=== PATIENT | male | born 2000 | race African-American/Black ===

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

== ENCOUNTER 2023-12-08 17:14 | Inpatient (IN) | payer MEDICAID ==
[2023-12-08 18:52] LABS: Amphetamine Screen,Urine Not Detected (NotDetected); Barbiturate Screen,Urine Not Detected (NotDetected); Benzodiazepines Screen,Urine Not Detected (NotDetected); Cocaine Screen,Urine Not Detected (NotDetected); Methadone Screen, Urine Not Detected (NotDetected); Opiate Screen,Urine Not Detected (NotDetected); Oxycodone Screen, Urine Not Detected (NotDetected); Phencyclidine Screen,Urine Not Detected (NotDetected); Tricyclic Antidepressant,Urine Not Detected (NotDetected); Urn Cannabinoid Scrn Detected (NotDetected)
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
[2023-12-08] MEDS: HALOPERIDOL LACTATE 5 MG/ML 1 ML VIAL IM PRN (19:21)
[2023-12-08] MEDS: LORazepam 2 MG/ML INJ IM PRN (19:22)
[2023-12-09] MEDS: LORazepam 2 MG/ML INJ IM STA (06:10)
[2023-12-09] MEDS: HALOPERIDOL LACTATE 5 MG/ML 1 ML VIAL IM STA (06:11)
[2023-12-09] MEDS ORDERED: haloperidoL 5 MG TAB PO PRN (17:33)
[2023-12-09] MEDS ORDERED: HALOPERIDOL LACTATE 5 MG/ML 1 ML VIAL IM PRN (17:33)
[2023-12-09] MEDS ORDERED: LORazepam 2 MG/ML INJ IM PRN (17:34)
[2023-12-09] MEDS ORDERED: LORazepam 1 MG TAB PO PRN (17:34)
[2023-12-09] MEDS ORDERED: ACETAMINOPHEN TAB 325 MG TAB PO PRN (18:16)
[2023-12-09] MEDS ORDERED: MAGNESIUM HYDROXIDE 2,400 MG/30 ML CUP PO PRN (18:16)
[2023-12-09] MEDS ORDERED: IBUPROFEN 600 MG TAB PO PRN (18:16)
[2023-12-09] MEDS ORDERED: MAG HYDROX/AL HYDROX/SIMETH 355 ML BOTTLE PO PRN (18:16)
[2023-12-09] MEDS: NICOTINE 14MG/24HR PATCH TRANSDERM SCH (19:07)
--- NOTE | 2023-12-10 03:43 | P.MDCNMH ---
History of Present Illness H&P Date: 12/10/23 Chief Complaint: Medical eval 23-year-old male coming into the hospital petition by police for psych evaluation was initially found to have pressured speech and delusional ideation in the ED during my evaluation patient has pressured speech making comments regarding other people confucianist family with paranoid content Denies any medical concerns at this time denies any fevers chills coughing chest pain trouble breathing abdominal pain rash Admits to smoking marijuana denies any tobacco smoking or alcohol review of systems Pertinent positives as noted in HPI. All other systems were reviewed and are negative on exam Constitutional: No acute distress, cooperative Eyes: Anicteric sclerae, moist conjunctiva, Pupils equal round reactive to light Lungs: Clear to auscultation Clear to percussion Normal respiratory effort, no accessory muscle use Cardiovascular: Heart regular in rate and rhythm, No murmurs, gallops, or rubs No peripheral edema Abdominal: Soft Nontender, no guarding, rebound or rigidity Abdomen moving with respiration Normoactive bowel sounds Extremities: No digital cyanosis No clubbing Pedal pulses intact and symmetrical Radial pulses intact and symmetrical No calf tenderness Psychiatric: Alert and oriented to person, place and time Neuro Muscles Strength 5/5 in all 4 extremities Sensation to light touch grossly present throughout Cranial nerves II-XII grossly intact Past Medical History Past Medical History: No Reported History History of Any Multi-Drug Resistant Organisms: None Reported Past Surgical History: No Surgical Hx Reported Past Anesthesia/Blood Transfusion Reactions: No Reported Reaction Past Psychological History: No Psychological Hx Reported Smoking Status: Vaper Past Alcohol Use History: None Reported, Occasional Past Drug Use History: None Reported, Marijuana - Past Family History Mother History Unknown: Yes Medications and Allergies Home Medications Medication Instructions Recorded Confirmed Type No Known Home Medications 03/30/18 12/09/23 History Allergies Allergy/AdvReac Type Severity Reaction Status Date / Time No Known Allergies Allergy Verified 12/09/23 19:51 Physical Exam Vitals: Vital Signs Temp Pulse Pulse Resp BP BP Pulse Ox 12/09/23 17:37 97.7 F 68 16 118/58 98 12/09/23 11:00 97.9 F 71 16 113/74 100 Intake and Output 12/09/23 12/09/23 12/10/23 14:59 22:59 06:59 Other: Weight 42.728 kg Cranial Nerve Examination - Cranial Nerves Cranial Nerve II- Optic: Intact Cranial Nerve III- Oculomotor: Intact Cranial Nerve IV- Trochlear: Intact Cranial Nerve V- Trigeminal: Intact Cranial Nerve - Abducens: Intact Cranial Nerve VII- Facial: Intact Cranial Nerve VIII- Auditory: Intact Cranial Nerve IX- Glossopharyngeal: Intact Cranial Nerve X- Vagus: Intact Cranial Nerve XI- Accessory: Intact Cranial Nerve XII- Hypoglossal: Intact Assessment and Plan Assessment: Acute psychosis Management per psych Stable from medical standpoint No labs available for review at this time except for negative acute respiratory viral panel COVID RSV and influenza Urine drug screen positive for marijuana Follow-up labs Thank you for this consultation
[2023-12-10 09:48] LABS: Basophils # (A) 0.1 k/uL (0-0.2); Basophils % (A) 2 %; Eosinophils % (A) 1 %; HGB 16.5 gm/dL (13.0-17.5); Lymphocytes # (A) 0.6 k/uL (1.0-4.8); Lymphocytes % (A) 22 %; MCH 30.7 pg (25.0-35.0); MCV 93.2 fL (80.0-100.0); Mean Platelet Volume 7.9; Monocytes # (A) 0.2 k/uL (0-1.0); Monocytes % (A) 8 %; Neutrophils # (A) 1.8 k/uL (1.3-7.7); Neutrophils % (A) 66 %; Platelet Count 253 k/uL (150-450); RBC 5.37 m/uL (4.30-5.90); RDW 12.5 % (11.5-15.5); WBC 2.7 k/uL (3.8-10.6)
[2023-12-10 10:38] LABS: ALT 56 U/L (4-49); AST 106 U/L (17-59); African American GFR (CKD) >90 (>60 ml/min/1.73 sqM); Albumin 4.8 g/dL (3.5-5.0); Alkaline Phosphatase 60 U/L (38-126); Anion Gap 6 mmol/L; Blood Urea Nitrogen 12 mg/dL (9-20); Calcium 9.4 mg/dL (8.4-10.2); Carbon Dioxide 30 mmol/L (22-30); Chloride 100 mmol/L (98-107); Glucose 98 mg/dL (74-99); Non-African American GFR(CKD) >90 (>60 ml/min/1.73 sqM); Potassium 3.8 mmol/L (3.5-5.1); Sodium 136 mmol/L (137-145); Total Bilirubin 1.2 mg/dL (0.2-1.3); Total Protein 7.7 g/dL (6.3-8.2)
--- NOTE | 2023-12-10 12:47 | P.HP ---
Psychiatric H&P - . H&P Date: 12/10/23 History & Physical: Allergies Allergy/AdvReac Type Severity Reaction Status Date / Time No Known Allergies Allergy Verified 12/09/23 19:51 Vital Signs Temp 97.7 F 12/10/23 06:25 Pulse 86 12/10/23 06:25 Resp 16 12/10/23 06:25 BP 125/72 12/10/23 06:25 Pulse Ox 98 12/09/23 17:37 FiO2 Intake & Output 12/09/23 12/10/23 12/10/23 18:59 06:59 18:59 Weight 42.728 kg Laboratory Last Values Urine Opiates Screen Not Detected (NotDetected) 12/08/23 17:42 Ur Oxycodone Screen Not Detected (NotDetected) 12/08/23 17:42 Urine Methadone Screen Not Detected (NotDetected) 12/08/23 17:42 Ur Barbiturates Screen Not Detected (NotDetected) 12/08/23 17:42 U Tricyclic Antidepress Not Detected (NotDetected) 12/08/23 17:42 Ur Phencyclidine Scrn Not Detected (NotDetected) 12/08/23 17:42 Ur Amphetamines Screen Not Detected (NotDetected) 12/08/23 17:42 U Methamphetamines Scrn Not Detected (NotDetected) 12/08/23 17:42 U Benzodiazepines Scrn Not Detected (NotDetected) 12/08/23 17:42 Urine Cocaine Screen Not Detected (NotDetected) 12/08/23 17:42 U Marijuana (THC) Screen Detected (NotDetected) H 12/08/23 17:42 Influenza Type A (PCR) Not Detected (Not Detectd) 12/09/23 06:30 Influenza Type B (PCR) Not Detected (Not Detectd) 12/09/23 06:30 RSV (PCR) Not Detected (Not Detectd) 12/09/23 06:30 SARS-CoV-2 (PCR) Not Detected (Not Detectd) 12/09/23 06:30 12/10/23 08:55 IDENTIFYING DATA: Patient is a 23 year old male. 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 No children. HPI: Patient presented to the hospital on 12/07, on a case picker order. As per EPS note, "Tensioning Machine Operator attempted to complete assessment, but pt refused to speak to comic book writer. pt pretended to be asleep and rolled over and pulled up blanket to cover his head when shaken. pt was brought in on pickup order completed by his mother. Per pickup order, pt has been talking to his mother "about checks that are his that are cancelled in someone else's name. He told me that he wants to take pain away that everyone has so they can live because he wants to ." pt has been apparently carrying a steak knife around to protect himself, is awake for days at a time, and behaving irrationally. Upon arrival to ER, pt was acutely psychotic per ER staff. pt was loud, demanding, attempting to run up and down hallways, and was religiously preoccupied. pt also presented with symptoms of paranoia as he reported that he believes that he was being poisoned at home". He states that he came to the ED earlier in the day, and he was discharged, and came back because he felt there was something in his system. He stated that his speech was rapid, and it is not him. He states that he was not himself. He gets wide eyed, and states that he hears "you need god in your life, and get the devil out" He thinks that he was drugged by touching something of his fathers, he guesses it was fentanyl. Patient is minimizing his actions, and being very vague and evasive regarding the circumstances that brought him in. he was endorsing paranoia, disorganized thoughts, abiodun ypoor insight and judgment. Patient denies any suicidal or homicidal ideations intent or plan. At this time patient denies any auditory or visual hallucinations. Patient denies any flight of ideas racing thoughts and increased in goal directed behavior. Patient admits to using marijuana. Patient was adamantly refusing that he does not want any psychiatric medications. PAST PSYCHIATRIC HISTORY: Patient denies ever being admitted psychiatrically. Patient denies being on any psychiatric medications. Patient denies any psychiatric outpatient follow-up. Patient denies any history of suicide attempts in the past. PMH:As per ER note ALLERGIES: as per EMR CHEMICAL DEPENDENCY HISTORY: as per HPI FAMILY PSYCHIATRIC/SUBSTANCE USE HISTORY: denies SOCIAL HISTORY: Patient was born and raised in [place], [place]. High school graduate. Has a girlfriend, no children. Works in a factory. Denies legal problems. MENTAL STATUS EXAM: General Appearance: Patient appears to be stated age is alert, directable, and attempts to cooperate. Patient appears to have fair hygiene and grooming. Wearing casual clothing, and has his hair braided. Wearing glasses. Short in stature, thin. Behavior: Patient is seated without any agitated behavior. Evasive/Vague Speech: Patient's speech is [fluent and nonpressured. Mood/Affect: Patient reports their mood is fine, affect is congruent and constricted. Suicidality/Homicidality: Patient denies having any homicidal ideation intent or plan. Denies any suicidal ideations intent or plan Perceptions: Patient denies any visual hallucinations [and endorses auditory hallucinations] Though content/process: [There is no evidence of any delusional thought content and thought process religiously preoccupied. Paranoid Memory and concentration: AOX3, grossly intact for the purposes of this session. Can spell "WORLD" backwards Judgment and insight: poor STRENGTHS/WEAKNESSES: strength is that patient is resilient. Weakness is that patient [has poor judgment and is impulsive INTELLECT: average IMPRESSIONS: psychosis, unspecified anxiety disorder, unspecified cannabis use disorder PLAN: -Patient is admitted under involuntary status to [facility] for stabilization of psychiatric symptoms and safety. Patient has not signed adult voluntary form and medication consent and is placed in patient's chart. A second certification was completed and along with petition will be filed for court. -Medications : Will start patient on Invega 3mg qhs for psychosis -Ativan and Haldol PRN for agitation/aggression -Patient was counselled on substance abuse and desired to cut back on use -Patient was informed of the risks, benefits and side effects of the medication -Internal Medicine consult to perform medical evaluation and physical. -NRT -nonsmoker -SW on board for discharge planning. Encourage patient to participate in groups to work on coping skills. Will await deferral and court date.
[2023-12-10] MEDS: PALIPERIDONE 3 MG TAB.ER.24 PO SCH (21:27)
[2023-12-11] MEDS: MELATONIN 5 MG TABLET PO ONE (02:45)
[2023-12-11] MEDS ORDERED: traZODone HCL 50 MG TAB PO PRN (11:03)
--- NOTE | 2023-12-11 11:10 | P.PN ---
Progress Note - Text Progress Note Date: 12/11/23 Interval History: Patient was seen in his room and was directable and agreeable to speak with wr iter in the office. Patient stated that he is doing good today. He states he is in the greatest mood right now. He did take his medication that was ordered, and stated that he is glad he did. The patient is attending groups. appears to have mildly improving affect today, less religiously preoccupied. He states he slept well last night after a dose of melatonin. His appetite is good. At this time p atient denies any suicidal or homicidal ideations, intent or plan. Patient denies any auditory, visual hallucinations and denies any paranoia or delusions. Patient denies any side effects from the medications and has been compliant with meds. MENTAL STATUS EXAM: General Appearance: Patient appears to be stated age is alert, directable, and attempts to cooperate. Patient appears to have fair hygiene and grooming. Wearing casual clothing, and has his hair braided. Wearing glasses. Short in stature, thin. Behavior: Patient is seated without any agitated behavior. Vague, mildly improving. More cooperative today Speech: Patient's speech is fluent and nonpressured. Mood/Affect: Patient reports their mood is improving, affect is congruent and constricted. mildly improving Suicidality/Homicidality: Patient denies having any homicidal ideation intent or plan. Denies any suicidal ideations intent or plan Perceptions: Patient denies any visual hallucinations and denies auditory hallucinations Though content/process: There is no evidence of any delusional thought content and thought process future orientated, less religiously preoccupied, paranoia improving. Memory and concentration: AOX3, grossly intact for the purposes of this session. Judgment and insight: poor, mildly improving insight IMPRESSIONS: psychosis, unspecified anxiety disorder, unspecified cannabis use disorder PLAN: -Patient is admitted under involuntary status to [facility] for stabilization of psychiatric symptoms and safety. Patient has not signed adult voluntary form or medication consent and is placed in patient's chart. -Medications : Invega 3mg qhs for psychosis add Melatonin 10mg qhs for sleep, add trazodone 50mg qhs prn for insomnia -Ativan and Haldol PRN for agitation/aggression -NRT -nonsmoker -SW on board for discharge planning. Encourage patient to participate in groups to work on coping skills. Will await deferral and court date. Hopeful for discharge early next week if patient continues to improve and take medications.
[2023-12-12] MEDS: MELATONIN 5 MG TABLET PO SCH (01:18)
--- NOTE | 2023-12-12 11:26 | P.PN ---
Progress Note - Text Progress Note Date: 12/12/23 Interval History: Patient was seen in his room and was directable and agreeable to speak with wr iter in the office. Patient stated that he is good today. He did defer with his energy attorney. The patient is attending groups. appears to have mildly improving affect. He states he slept well last night not requiring melatonin. His appetite is good. He claims that he feels motivated to go to groups and interact with others. At this time patient denies any suicidal or homicidal ideations, intent or plan. Patient denies any auditory, visual hallucinations and denies any paranoia or delusions. Patient denies any side effects from the medications and has been compliant with meds. We spoke about possibly increasing his dose of Invega however he wants to hold off at this time and would be open to it in a few more days. MENTAL STATUS EXAM: General Appearance: Patient appears to be stated age is alert, directable, and attempts to cooperate. Patient appears to have fair hygiene and grooming. Wearing casual clothing, and has his hair braided. Wearing glasses. Short in stature, thin. Behavior: Patient is seated without any agitated behavior. mildly improving. More cooperative today Speech: Patient's speech is fluent and nonpressured. Mood/Affect: Patient reports their mood is improving, affect is congruent and constricted. mildly improving Suicidality/Homicidality: Patient denies having any homicidal ideation intent or plan. Denies any suicidal ideations intent or plan Perceptions: Patient denies any visual hallucinations and denies auditory hallucinations Though content/process: There is no evidence of any delusional thought content and thought process future orientated, less religiously preoccupied, paranoia improving. Memory and concentration: AOX3, grossly intact for the purposes of this session. Judgment and insight: poor, mildly improving insight IMPRESSIONS: psychosis, unspecified anxiety disorder, unspecified cannabis use disorder PLAN: -Patient is admitted under involuntary status to [facility] for stabilization of psychiatric symptoms and safety. Patient has not signed adult voluntary form or medication consent and is placed in patient's chart. -Medications : Invega 3mg qhs for psychosis, consider increasing to 6 mg on Friday if needed/tolerated. Melatonin 10mg qhs for sleep, trazodone 50mg qhs prn for insomnia -Ativan and Haldol PRN for agitation/aggression -NRT -nonsmoker -SW on board for discharge planning. Encourage patient to participate in groups to work on coping skills. Will await deferral and court date. Hopeful for discharge early next week if patient continues to improve and take medications. Patient deferred with his energy attorney.
[2023-12-12] MEDS ORDERED: PALIPERIDONE 6 MG TAB.ER.24 PO SCH (21:00)
[2023-12-12] MEDS: PALIPERIDONE 3 MG TAB.ER.24 PO SCH (21:42)
--- NOTE | 2023-12-13 09:00 | P.PN ---
Subjective Progress Note Date: 12/13/23 Principal diagnosis: Psychosis NOS Subjective "the patient was somewhat pressured he saw me in the [place] talking to another patient, "my mother is coming and 10 and I need to be out of here". He says he sleeping well eating well he wants to go to groups but his big focus is that there was a lady who made an inappropriate comment to him and then denied that she had and he does not like to stay around liars. He denies any psychotic symptoms and denies any suicidality or homicidality denies any depression says, "I'm fine". Objective somewhat pressured speech perseverates on the same idea over and over affect is somewhat intense when I offered to do a mental status exam psych could establish how well he was doing he refused saying we don't need that. When I offered to write in the note and asked phonation as to why he was going to choose to be more withdrawn in the community he said he didn't need that either he would just go to groups any unit they made him uncomfortable. Self-care is adequate eye contact is intense gait is station are normal although he does walk rather fast. Assessment: Patient seems sort of pressured almost slightly manic. Has no insight and it's hard to assess as he is not real cooperative. He seems to be tolerating medicine well but refused to have it increased and he says is fine at all needed any more. Plan continue current medication document his participation in groups and meals and sleep. Decision for discharge needs to be made with the entire team if she continues to calm down but seems a little too pressured right now. Objective - Vital Signs Vital signs: Vital Signs Temp 97 F L 12/12/23 06:27 Pulse 88 12/12/23 09:56 Resp 16 12/12/23 06:27 BP 127/79 12/12/23 09:56 Pulse Ox 100 12/12/23 06:27 FiO2 - Labs CBC & Chem 7: 12/10/23 08:59 12/10/23 08:59
--- NOTE | 2023-12-13 10:07 | P.PN ---
Subjective Progress Note Date: 12/13/23 Principal diagnosis: Psychosis NOS Immediately after my session the patient was harassing the nursing staff about, " I'm going to leave when my mother gets here." a little later he came and started banging on my door knocking and knocking and knocking saying that his mother is going to be here and she has to let them out. I discussed with the nursing staff that the visit almost a be supervised or he is going to harass his mother and is okay for her to say that she is not here to discuss discharge.. Objective - Vital Signs Vital signs: Vital Signs Temp 97 F L 12/12/23 06:27 Pulse 88 12/12/23 09:56 Resp 16 12/12/23 06:27 BP 127/79 12/12/23 09:56 Pulse Ox 100 12/12/23 06:27 FiO2 - Labs CBC & Chem 7: 12/10/23 08:59 12/10/23 08:59
--- NOTE | 2023-12-14 10:43 | P.PN ---
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 He says if he keeps busy then he will get into the racing thoughts is much. He says he is able to concentrate on conversations or working on puzzles has been hanging out with others and getting along well with them that he is not angry all the time over every little thing. Objective he is somewhat pressured and perseverant on did I write him a good note. But much less pressured than yesterday. He is alert good eye contact pleasant observant logical. Assessment seems to have calmed down some still little pressured and racing I encouraged him to write up on letter in which she refused his insight into what got him here what he thinks he is already doing better appetite and what his plans for doing well after discharge are going beyond simply L keep busy so I won't have trouble. Plan: No change in medication at this time Objective - Vital Signs Vital signs: Vital Signs Temp 97.3 F L 12/14/23 06:52 Pulse 75 12/14/23 06:52 Resp 16 12/14/23 06:52 BP 120/76 12/14/23 06:52 Pulse Ox 100 12/13/23 09:00 FiO2 - Labs CBC & Chem 7: 12/10/23 08:59 12/10/23 08:59
[2023-12-15 07:17] VITALS: TEMP 97.7
--- NOTE | 2023-12-15 11:38 | P.PN ---
Progress Note - Text Progress Note Date: 12/15/23 Interval History: Patient was seen in his room and was directable and agreeable to speak with wr iter in the office. Patient stated that he is good today. Patient wrote a letter to this fiction and nonfiction writer prose recognizing what had brought him in here, recognizing what he needs to change to better himself. The patient is attending groups. appears to have improving affect. He states he slept well last night. His appetite is good. He claims that he feels motivated to go to groups and interact with others. At this time patient denies any suicidal or homicidal ideations, intent or plan. Patient denies any auditory, visual hallucinations and denies any paranoia or delusions. Patient denies any side effects from the medications and has been compliant with meds. Patient states the medications are really helping him mentally. MENTAL STATUS EXAM: General Appearance: Patient appears to be stated age is alert, directable, and attempts to cooperate. Patient appears to have fair hygiene and grooming. Wearing casual clothing, and has his hair braided. Wearing glasses. Short in stature, thin. Behavior: Patient is seated without any agitated behavior. mildly improving. Speech: Patient's speech is fluent and nonpressured. Mood/Affect: Patient reports their mood is great, affect is congruent and constricted. mildly improving Suicidality/Homicidality: Patient denies having any homicidal ideation intent or plan. Denies any suicidal ideations intent or plan Perceptions: Patient denies any visual hallucinations and denies auditory hallucinations Though content/process: There is no evidence of any delusional thought content and thought process future orientated, Memory and concentration: AOX3, grossly intact for the purposes of this session. Judgment and insight: improving insight and judgment IMPRESSIONS: psychosis, unspecified anxiety disorder, unspecified cannabis use disorder PLAN: -Patient is admitted under involuntary status to [facility] for stabilization of psychiatric symptoms and safety. Patient has not signed adult voluntary form or medication consent and is placed in patient's chart. -Medications : Invega 3mg qhs for psychosis, Melatonin 10mg qhs for sleep, trazodone 50mg qhs prn for insomnia -Ativan and Haldol PRN for agitation/aggression -NRT -nonsmoker -SW on board for discharge planning. Encourage patient to participate in groups to work on coping skills. Will await deferral and court date. Discharge tomorrow, if patient continues to improve. Patient deferred with his attorney at law.
[2023-12-15 13:09] VITALS: BMI 19.1
[2023-12-16 07:14] VITALS: BP 116/66; PULSE 78; RESP 16
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
== END 2023-12-16 10:44 | disposition home or self-care (01) | DRG 885 ==
LOC: EC 17:14 → 3MHU 12-09 17:03
PROVIDERS: ADMIT Psychiatry & Neurology Psychiatry; ATTEND Psychiatry & Neurology Psychiatry
DX: F29 Unspecified psychosis not due to a substance or known physiological condition (principal); F41.9 Anxiety disorder, unspecified; F12.10 Cannabis abuse, uncomplicated; Z11.52 Encounter for screening for COVID-19; G47.00 Insomnia, unspecified; Z28.310 Unvaccinated for COVID-19; Z87.891 Personal history of nicotine dependence; Z71.51 Drug abuse counseling and surveillance of drug abuser
CPT/HCPCS: 80053; 80306; 82075; 84443; 85025; 87636; 96372; 99291

== ENCOUNTER 2023-12-24 12:11 | Inpatient (IN) | payer MEDICAID, OTHER ==
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
[2023-12-24 13:24] LABS: Amphetamine Screen,Urine Not Detected (NotDetected); Barbiturate Screen,Urine Not Detected (NotDetected); Benzodiazepines Screen,Urine Not Detected (NotDetected); Cocaine Screen,Urine Not Detected (NotDetected); Methadone Screen, Urine Not Detected (NotDetected); Opiate Screen,Urine Not Detected (NotDetected); Oxycodone Screen, Urine Not Detected (NotDetected); Phencyclidine Screen,Urine Not Detected (NotDetected); Tricyclic Antidepressant,Urine Not Detected (NotDetected); Urn Cannabinoid Scrn Detected (NotDetected)
[2023-12-24] MEDS: LORazepam 2 MG/ML INJ IM STA (19:04)
[2023-12-24] MEDS: HALOPERIDOL LACTATE 5 MG/ML 1 ML VIAL IM STA (21:37)
[2023-12-24] MEDS ORDERED: MAGNESIUM HYDROXIDE 2,400 MG/30 ML CUP PO PRN (23:30)
[2023-12-24] MEDS ORDERED: MAG HYDROX/AL HYDROX/SIMETH 355 ML BOTTLE PO PRN (23:30)
[2023-12-24] MEDS ORDERED: ACETAMINOPHEN TAB 325 MG TAB PO PRN (23:30)
[2023-12-24] MEDS ORDERED: haloperidoL 5 MG TAB PO PRN (23:33)
[2023-12-24] MEDS ORDERED: HALOPERIDOL LACTATE 5 MG/ML 1 ML VIAL IM PRN (23:33)
[2023-12-24] MEDS ORDERED: traZODone HCL 50 MG TAB PO PRN (23:37)
[2023-12-25] MEDS: LORazepam 2 MG/ML INJ IM STA (00:16)
[2023-12-25] MEDS: MELATONIN 5 MG TABLET PO SCH (01:47)
[2023-12-25] MEDS: NICOTINE 14MG/24HR PATCH TRANSDERM SCH (09:06)
[2023-12-25] MEDS: PALIPERIDONE 3 MG TAB.ER.24 PO SCH ×2 (09:06→21:42)
[2023-12-25 11:05] LABS: Basophils % (A) 1 %; Eosinophils % (A) 1 %; HGB 14.8 gm/dL (13.0-17.5); Lymphocytes # (A) 0.8 k/uL (1.0-4.8); Lymphocytes % (A) 21 %; MCH 30.7 pg (25.0-35.0); MCHC 32.2 g/dL (31.0-37.0); MCV 95.2 fL (80.0-100.0); Mean Platelet Volume 7.9; Monocytes # (A) 0.3 k/uL (0-1.0); Monocytes % (A) 8 %; Neutrophils # (A) 2.5 k/uL (1.3-7.7); Neutrophils % (A) 66 %; Platelet Count 220 k/uL (150-450); RBC 4.83 m/uL (4.30-5.90); RDW 12.6 % (11.5-15.5); WBC 3.8 k/uL (3.8-10.6)
[2023-12-25 11:42] LABS: ALT 46 U/L (4-49); AST 54 U/L (17-59); African American GFR (CKD) >90 (>60 ml/min/1.73 sqM); Albumin 4.4 g/dL (3.5-5.0); Alkaline Phosphatase 59 U/L (38-126); Anion Gap 3 mmol/L; Blood Urea Nitrogen 12 mg/dL (9-20); Calcium 9.8 mg/dL (8.4-10.2); Carbon Dioxide 28 mmol/L (22-30); Chloride 106 mmol/L (98-107); Glucose 56 mg/dL (74-99); Non-African American GFR(CKD) >90 (>60 ml/min/1.73 sqM); Potassium 4.9 mmol/L (3.5-5.1); Sodium 137 mmol/L (137-145); Total Bilirubin 0.7 mg/dL (0.2-1.3); Total Protein 6.9 g/dL (6.3-8.2)
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
[2023-12-25 21:33] LABS: Glucose,Whole Blood 90 mg/dL (70-110)
[2023-12-26 07:53] LABS: Glucose,Whole Blood 102 mg/dL (70-110)
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
[2023-12-26 12:44] LABS: Glucose,Whole Blood 118 mg/dL (70-110)
[2023-12-26] MEDS: PALIPERIDONE IM 234 MG/1.5 ML SYG IM STA (15:39)
--- NOTE | 2023-12-26 15:53 | P.CONS ---
History of Present Illness - Reason for Consult Consult date: 12/26/23 - History of Present Illness 23 year old M with no significant PMH presents to the ED for mental health concerns. He is admitted to the mental health unit for further management of his symptoms. [facility] has been consulted for medical management of this patient. He reports no complaints. In the ED he underwent extensive evaluation. BP 111/68, HR 77, T 97.8F, RR 18, 99% on RA. CBC and CMP significant for lymphocyte count of 0.8 and glucose of 56. TSH 0.871. UDS marijuana. COVID negative. General: non toxic, no distress, appears at stated age Derm: warm, dry Head: atraumatic, normocephalic, symmetric Eyes: EOMI, no lid lag, anicteric sclera Mouth: no lip lesion, mucus membranes moist Cardiovascular: S1S2 reg, no murmur Lungs: CTA bilateral, no rhonchi, no rales , no accessory muscle use Ext: no gross muscle atrophy, no edema, no contractures Neuro: no focal neuro deficits, CN II -XII grossly intact Psych: Alert, oriented, appropriate affect Based on my assessment of this patient, this patient meets a high complexity level of care. Hypoglycemia: Accuchecks ACHS. Hypoglycemic precautions. Check A1c. Marijuana abuse: Advised to quit. CODE STATUS: FULL CODE DVT Prophylaxis: Early ambulation GI Prophylaxis: Designated medical POA if patient is not able to make medical decisions for themselves: I have reviewed the following technical solutions consultant notes: ED note, Psyc consult I have reviewed the results of the following tests: As above I have ordered the following tests: As above I have discussed the care of this patient with the following independent historian: I have independently interpreted the following test below: I have discussed the management of this patient with the following physician: Past Medical History Past Medical History: No Reported History History of Any Multi-Drug Resistant Organisms: None Reported Past Surgical History: No Surgical Hx Reported Past Anesthesia/Blood Transfusion Reactions: No Reported Reaction Past Psychological History: No Psychological Hx Reported Smoking Status: Vaper Past Alcohol Use History: None Reported, Occasional Past Drug Use History: None Reported, Marijuana - Past Family History Mother History Unknown: Yes Medications and Allergies Home Medications Medication Instructions Recorded Confirmed Type risperiDONE [RisperDAL] 1 mg PO ONETIME 12/24/23 12/24/23 History Allergies Allergy/AdvReac Type Severity Reaction Status Date / Time No Known Allergies Allergy Verified 12/25/23 04:59 Physical Exam Vitals: Vital Signs Temp Pulse Resp BP Pulse Ox 12/26/23 06:00 97.7 F 89 16 107/62 100 Results CBC & Chem 7: 12/25/23 10:30 12/25/23 10:30 Labs: Abnormal Lab Results - Last 24 Hours (Table) 12/26/23 Range/Units 12:41 POC Glucose (mg/dL) 118 H (70-110) mg/dL
[2023-12-26] MEDS: PALIPERIDONE 3 MG TAB.ER.24 PO ONE (21:25)
--- NOTE | 2023-12-27 12:30 | P.PN ---
Progress Note - Text Progress Note Date: 12/27/23 Interval History: Patient was seen wandering the hallways and was directable and agreeable to elisabeth flannery with senior underwriter in the office. he is calm and pleasant on interaction. He says that he had a visit with his girlfriend this morning. He reports that his mood is "great ". He is looking forward to moving into a new home with his girlfriend and her brother. He is also excited about his girlfriend being . He says he tolerated the injection well and is agreeable with getting the second shot prior to discharge. He says he has noticed a benefit with Invega would like to continue it. Discussed the monthly injection regimen. Patient did not have any other concerns today. He reports good sleep and appetite. At this time patient denies any suicidal or homicidal ideations, intent or plan. Patient denies any auditory, visual hallucinations and denies any paranoia or delusions. Patient denies any side effects from the medications and has been compliant with meds. Mental Status Exam: General Appearance: Patient appears to be stated age is alert, directable, and attempts to cooperate. Patient appears to have fair hygiene and grooming. Wearing casual clothing, Wearing glasses. Short in stature, thin. Behavior: Patient is seated without any agitated behavior. mildly improving. Speech: Patient's speech is fluent and nonpressured. Mood/Affect: Patient reports their mood is great, affect is congruent Suicidality/Homicidality: Patient denies having any homicidal ideation intent or plan. Denies any suicidal ideations intent or plan Perceptions: Patient denies any visual hallucinations and denies auditory hallucinations Though content/process: There is no evidence of any delusional thought content and thought process future oriented Memory and concentration: AOX3, grossly intact for the purposes of this session. Judgment and insight: improving mildly Assessment psychosis, unspecified anxiety disorder, unspecified cannabis use disorder Plan: -Patient continues to meet criteria for inpatient psychiatric admission for symptom stabilization and safety. Patient has not signed adult voluntary form and medication consent and was placed in patient's chart. -Medications: Invega Sustena 234mg IM on 12/26/23, next dose due 12/30 at 156mg IM. -When necessary Haldol for agitation/aggression. -NRT -nicotine patch -SW on board for discharge planning. Encouraged the patient to participate in milieu. Hearing is December 30. Likely discharge after second dose of Lily PERALTA.
[2023-12-28] MEDS: IBUPROFEN 600 MG TAB PO PRN (12:46)
--- NOTE | 2023-12-28 17:04 | P.PN ---
Progress Note - Text Progress Note Date: 12/28/23 Interval History: Patient was seen wandering the hallways and was directable and agreeable to sp alma delia with news writer in the office. He is calm and pleasant on interaction. He says that he spoke with his girlfriend over the phone today and she was upset about something. He states that he does not worry about things over which he has no control. He reports that his mood is "great ". He says he tolerated the injection well but has soreness at injection site. he was encouraged to take ibuprofen prior to injections in the future. Patient did not have any other concerns today. He reports good sleep and appetite. At this time patient denies any suicidal or homicidal ideations, intent or plan. Patient denies any auditory, visual hallucinations and denies any paranoia or delusions. Patient denies any side effects from the medications and has been compliant with meds. Mental Status Exam: General Appearance: Patient appears to be stated age is alert, directable, and attempts to cooperate. Patient appears to have fair hygiene and grooming. Wearing casual clothing, Wearing glasses. Short in stature, thin. Behavior: Patient is seated without any agitated behavior. mildly improving. Speech: Patient's speech is fluent and nonpressured. Mood/Affect: Patient reports their mood is great, affect is congruent Suicidality/Homicidality: Patient denies having any homicidal ideation intent or plan. Denies any suicidal ideations intent or plan Perceptions: Patient denies any visual hallucinations and denies auditory hallucinations Though content/process: There is no evidence of any delusional thought content and thought process future oriented Memory and concentration: AOX3, grossly intact for the purposes of this session. Judgment and insight: improving mildly Assessment psychosis, unspecified anxiety disorder, unspecified cannabis use disorder Plan: -Patient continues to meet criteria for inpatient psychiatric admission for symptom stabilization and safety. Patient has not signed adult voluntary form and medication consent and was placed in patient's chart. -Medications: Invega Sustena 234mg IM on 12/26/23, next dose due 12/30 at 156mg IM. -When necessary Haldol for agitation/aggression. -NRT -nicotine patch -SW on board for discharge planning. Encouraged the patient to participate in milieu. Hearing is December 30. Likely discharge after second dose of PERALTA, Friday.
--- NOTE | 2023-12-29 11:25 | P.PN ---
Progress Note - Text Progress Note Date: 12/29/23 Interval History: Patient was seen wandering the hallways and was directable and agreeable to sp alma delia with residential mortgage underwriter in the office. He is calm and pleasant on interaction. He states that he is doing great today. He is tolerating the PERALTA well. He is going to groups, and interacting with his peers on the unit. claims he is waiting for court on friday. Patient did not have any other concerns today. He reports good sleep and appetite. At this time patient denies any suicidal or homicidal ideations, intent or plan. Patient denies any auditory, visual hallucinations and denies any paranoia or delusions. Patient denies any side effects from the medications and has been compliant with meds. Mental Status Exam: General Appearance: Patient appears to be stated age is alert, directable, and attempts to cooperate. Patient appears to have fair hygiene and grooming. Wearing casual clothing, Wearing glasses. Short in stature, thin. Behavior: Patient is seated without any agitated behavior. mildly improving. Speech: Patient's speech is fluent and nonpressured. Mood/Affect: Patient reports their mood is great, affect is congruent mildly improving Suicidality/Homicidality: Patient denies having any homicidal ideation intent or plan. Denies any suicidal ideations intent or plan Perceptions: Patient denies any visual hallucinations and denies auditory hallucinations Though content/process: There is no evidence of any delusional thought content and thought process future oriented Memory and concentration: AOX3, grossly intact for the purposes of this session. Judgment and insight: improving mildly Assessment psychosis, unspecified anxiety disorder, unspecified cannabis use disorder Plan: -Patient continues to meet criteria for inpatient psychiatric admission for symptom stabilization and safety. Patient has not signed adult voluntary form and medication consent and was placed in patient's chart. -Medications: Invega Sustena 234mg IM on 12/26/23, next dose due 12/30 at 156mg IM. -When necessary Haldol for agitation/aggression. -NRT -nicotine patch -SW on board for discharge planning. Encouraged the patient to participate in milieu. Hearing is December 30. Likely discharge after second dose of PERALTA, Friday.
[2023-12-30 07:10] VITALS: RESP 16
--- NOTE | 2023-12-30 09:50 | P.PN ---
Progress Note - Text Progress Note Date: 12/30/23 Interval History: Patient was seen wandering the hallways and was directable and agreeable to sp alma delia with card writer hand in the office. He states that he is doing great today. He is tolerating the PERALTA well. He is going to groups, and interacting with his peers on the unit. Patient stated that he signed the waive and stip with his city attorney yesterday. Patient is pleasant today. He was asking about what time he can be discharged, he has a hearing in the am for his current legal charges. Bow Maker Custom told patient he would get his second PERALTA in the am, and he would be discharged after the interview tomorrow. Patient did not have any other concerns today. He reports good sleep and appetite. At this time patient denies any suicidal or homicidal ideations, intent or plan. Patient denies any auditory, visual hallucinations and denies any paranoia or delusions. Patient denies any side effects from the medications and has been compliant with meds. Mental Status Exam: General Appearance: Patient appears to be stated age is alert, directable, and attempts to cooperate. Patient appears to have fair hygiene and grooming. Wearing casual clothing, Wearing glasses. Short in stature, thin. Behavior: Patient is seated without any agitated behavior. mildly improving. Speech: Patient's speech is fluent and nonpressured. Mood/Affect: Patient reports their mood is great, affect is congruent mildly improving Suicidality/Homicidality: Patient denies having any homicidal ideation intent or plan. Denies any suicidal ideations intent or plan Perceptions: Patient denies any visual hallucinations and denies auditory hallucinations Though content/process: There is no evidence of any delusional thought content and thought process future oriented Memory and concentration: AOX3, grossly intact for the purposes of this session Judgment and insight: improving mildly Assessment psychosis, unspecified anxiety disorder, unspecified cannabis use disorder Plan: -Patient continues to meet criteria for inpatient psychiatric admission for symptom stabilization and safety. Patient has not signed adult voluntary form and medication consent and was placed in patient's chart. -Medications : Invega Sustena 234mg IM on 12/26/23, next dose due 12/30 at 156mg IM, and monthly dose will be due on 01/27 of 78 mg IM -When necessary Haldol for agitation/aggression. -NRT -nicotine patch -SW on board for discharge planning. Encouraged the patient to participate in milieu. Hearing is December 30. Likely discharge after second dose of PERALTA, Friday.
[2023-12-30 12:28] VITALS: BMI 18.6
[2023-12-31 08:53] VITALS: BP 110/70; PULSE 96; TEMP 97.3
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
[2023-12-31] MEDS: PALIPERIDONE IM 156 MG/ML SYG IM ONE (10:10)
== END 2023-12-31 12:55 | DRG 885 ==
LOC: EC 12:11 → 3MHU 23:26
PROVIDERS: ADMIT Psychiatry & Neurology Psychiatry; ATTEND Psychiatry & Neurology Psychiatry
DX: F29 Unspecified psychosis not due to a substance or known physiological condition (principal); Z91.148 Patient's other noncompliance with medication regimen for other reason; F12.10 Cannabis abuse, uncomplicated; F41.9 Anxiety disorder, unspecified; Z11.52 Encounter for screening for COVID-19; F17.290 Nicotine dependence, other tobacco product, uncomplicated; Z71.6 Tobacco abuse counseling; Z79.899 Other long term (current) drug therapy; Z71.51 Drug abuse counseling and surveillance of drug abuser; Y09 Assault by unspecified means
CPT/HCPCS: 80053; 80306; 82075; 83036; 84443; 85025; 87635; 96372; 99285

== ENCOUNTER 2024-02-25 11:18 | Emergency (ER) | payer MEDICAID, OTHER ==
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
[2024-02-25] MEDS: BACITRACIN OINT 1 EACH PACKET TOPICAL ONE (12:23)
--- NOTE | 2024-02-25 12:27 | XR ---
EXAMINATION TYPE: XR foot complete LT DATE OF EXAM: 02/25/2024 COMPARISON: NONE HISTORY: Pain TECHNIQUE: Three views are submitted. FINDINGS: The osseous structures are intact. There is no acute fracture or dislocation. Mild first MTP joint arthropathy.. IMPRESSION: 1. No acute fracture or dislocation. If symptoms persist, follow-up exam in 7 to 10 days could be ob tained.
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
[2024-02-25 13:30] VITALS: BP 131/78; PULSE 81; RESP 18; TEMP 98
== END 2024-02-25 14:16 | disposition home or self-care (01) ==
LOC: EC 11:18
CPT/HCPCS: 70450; 72125; 99283

== ENCOUNTER 2024-02-26 08:35 | Emergency (ER) | payer OTHER, MEDICAID ==
[2024-02-26 08:38] VITALS: RESP 20
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
[2024-02-26] MEDS: IBUPROFEN 600 MG TAB PO STA (09:56)
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
[2024-02-26 10:50] VITALS: BP 112/72; PULSE 86; TEMP 98.4
== END 2024-02-26 10:50 | disposition home or self-care (01) ==
LOC: EC 08:35
CPT/HCPCS: 72100; 99284

== ENCOUNTER 2024-10-03 10:08 | Inpatient (IN) | payer MEDICAID ==
--- NOTE | 2024-10-03 10:37 | ED ---
General Adult HPI - General Chief complaint: Psychiatric Symptoms Stated complaint: petition Time Seen by Provider: 10/03/24 10:15 Source: patient, police, RN notes reviewed, old records reviewed Mode of arrival: ambulatory Limitations: no limitations - History of Present Illness Initial comments: This is a 24-year-old male who has a past medical history for schizophrenia and bipolar. Patient states he stopped taking his meds. Patient was yelling and screaming at his mother today so she called the police and they came and brought him in. Mother is going to petition the patient to be admitted. Patient is very verbal and tangential in his thinking. He has stated multiple times that he is from a long [place] cold blood killer. Patient states that we have to be real with him he also makes statements that he is not afraid of his mother and he will mess her up. Patient does not answer most questions and goes off on tangents anytime I ask a different question. - Related Data Previous Rx's Medication Instructions Recorded Melatonin 10 mg PO HS tab 12/31/23 Paliperidone Palmitate [Invega 78 mg IM QMONTHLY #1 each 12/31/23 Sustenna] Cyclobenzaprine [Flexeril] 10 mg PO TID PRN #15 tab 02/26/24 Ibuprofen [Motrin] 600 mg PO Q8HR PRN #20 tab 02/26/24 Allergies Allergy/AdvReac Type Severity Reaction Status Date / Time No Known Allergies Allergy Verified 10/03/24 10:14 Review of Systems ROS Statement: Those systems with pertinent positive or pertinent negative responses have been documented in the HPI. ROS Other: All systems not noted in ROS Statement are negative. Past Medical History Past Medical History: No Reported History History of Any Multi-Drug Resistant Organisms: None Reported Past Surgical History: No Surgical Hx Reported Past Anesthesia/Blood Transfusion Reactions: No Reported Reaction Past Psychological History: Schizophrenia Smoking Status: Vaper Past Alcohol Use History: None Reported Past Drug Use History: None Reported, Marijuana - Past Family History Mother History Unknown: Yes General Exam - General Exam Comments Initial Comments: GENERAL: Patient is well-developed and well-nourished. Patient is nontoxic and well- hydrated and is in no acute distress. ENT: Neck is soft and supple. No significant lymphadenopathy is noted. Oropharynx is clear. Moist mucous membranes. Neck has full range of motion without eliciting any pain. EYES: The sclera were anicteric and conjunctiva were pink and moist. Extraocular movements were intact and pupils were equal round and reactive to light. Eyelids were unremarkable. PULMONARY: Unlabored respirations. Good breath sounds bilaterally. No audible rales rho nchi or wheezing was noted. CARDIOVASCULAR: There is a regular rate and rhythm without any murmurs gallops or rubs. ABDOMEN: Soft and nontender with normal bowel sounds. SKIN: Skin is clear with no lesions or rashes and otherwise unremarkable. NEUROLOGIC: Patient is alert and oriented x3. Cranial nerves II through XII are grossly intact. Motor and sensory are also intact. Normal speech, volume and content. Symmetrical smile. MUSCULOSKELETAL: Normal extremities with adequate strength and full range of motion. LYMPHATICS: No significant lymphadenopathy is noted PSYCHIATRIC: Patient is highly agitated and making all sorts of bizarre statements none of which seem to be a cohesive thought process. Limitations: no limitations Course Vital Signs 10/03/24 10:10 Temperature 98.5 F Pulse Rate 118 H Respiratory 20 Rate Blood Pressure 154/105 O2 Sat by Pulse 100 Oximetry Procedures - Restraint - Face to Face Restraint Occurrence 1 Patient's Immediate Situation: Endangers self safety, Endangers others' safety Patient's Reaction to the Intervention: Uncooperative, Hostile, Belligerent, Bizarre, Combative Patient's Medical & Behavioral Condition: Awake, Alert Need to Continue or Terminate Restraint or Seclusion: Continue Face to Face Eval of Restraint Date: 10/03/24 Face to Face Eval of Restraint Time: 11:55 Medical Decision Making - Medical Decision Making Was pt. sent in by a medical professional or institution (, PA, RHIT, urgent care, hospital, or [facility]...) When possible be specific @ -No Did you speak to anyone other than the patient for history (EMS, parent, family, police, friend...)? What history was obtained from this source @ -No Did you review nursing and triage notes (agree or disagree)? Why? @ -I reviewed and agree with nursing and triage notes Were old charts reviewed (outside hosp., previous admission, EMS record, old EKG, old radiological studies, urgent care reports/EKG's, [facility] records)? Report findings @ -No old charts were reviewed Differential Diagnosis? @ -Differential Mental Health Depression, anxiety, bipolar, psychosis, schizophrenia, borderline personality, situational depression, adjustment disorder, behavioral disorder, brain tumor, malingering, substance abuse, encephalopathy, medication reaction, dementia, hypothyroidism, degenerative neurologic disorder, lupus.... This is not meant to be all-inclusive list EKG interpreted by me (3pts min.). @ -As above X-rays interpreted by me (1pt min.). @ -None done CT interpreted by me (1pt min.). @ -None done U/S interpreted by me (1pt. min.). @ -None done What testing was considered but not performed or refused? (CT, X-rays, U/S, labs)? Why? @ -None What meds were considered but not given or refused? Why? @ -None Did you discuss the management of the patient with other professionals (professionals i.e. , PA, RHIT, lab, RT, psych nurse, social services technician, cutting pressman, teacher, senior compliance officer, senior case manager)? Give summary @ -I spoke with EPS EPS spoke with the psychiatrist and agreed the patient needed to be admitted. I filled out a clinical certification for the patient's admission Was smoking cessation discussed for >3mins.? @ -No Was critical care preformed (if so, how long)? @ -No Were there social determinants of health that impacted care today? How? (Homelessness, low income, unemployed, alcoholism, drug addiction, transportation, low edu. Level, literacy, decrease access to med. care, group home, rehab)? @ -No Was there de-escalation of care discussed even if they declined (Discuss DNR or withdrawal of care, Hospice)? DNR status @ -No What co-morbidities impacted this encounter? (DM, HTN, Smoking, COPD, CAD, Cancer, CVA, ARF, Chemo, Hep., AIDS, mental health diagnosis, sleep apnea, morbid obesity)? @ -None Was patient admitted / discharged? Hospital course, mention meds given and route, prescriptions, significant lab abnormalities, going to OR and other pertinent info. @ -Patient needed to be restrained and then sedated because he was screaming and yelling and very belligerent while in the emergency department he also was making no sense anytime going off on multiple tangents. Patient will be admitted to the psychiatric floor Undiagnosed new problem with uncertain prognosis? @ -No Drug Therapy requiring intensive monitoring for toxicity (Heparin, Nitro, Insulin, Cardizem)? @ -No Were any procedures done? @ -No Diagnosis/symptom? @ -Acute psychosis Acute, or Chronic, or Acute on Chronic? @ -Acute Uncomplicated (without systemic symptoms) or Complicated (systemic symptoms)? @ -Complicated Side effects of treatment? @ -No Exacerbation, Progression, or Severe Exacerbation? @ -No Poses a threat to life or bodily function? How? (Chest pain, [place], [place], pneumonia, PE, COPD, DKA, ARF, appy, cholecystitis, CVA, Diverticulitis, Homicidal, Suicidal, threat to staff... and all critical care pts) @ -No Disposition Clinical Impression: Psychosis Disposition: ADMITTED IP TO THIS HOSP Referrals: None,Stated [Primary Care Provider] - 1-2 days Time of Disposition: 14:14
[2024-10-03] MEDS: LORazepam 2 MG/ML INJ IM STA (11:59)
[2024-10-03] MEDS: ZIPRASIDONE 20 MG VIAL IM STA (12:00)
[2024-10-03 15:22] LABS: Amphetamine Screen,Urine Not Detected (NotDetected); Barbiturate Screen,Urine Not Detected (NotDetected); Benzodiazepines Screen,Urine Not Detected (NotDetected); Cocaine Screen,Urine Not Detected (NotDetected); Methadone Screen, Urine Not Detected (NotDetected); Opiate Screen,Urine Not Detected (NotDetected); Oxycodone Screen, Urine Not Detected (NotDetected); Phencyclidine Screen,Urine Not Detected (NotDetected); Tricyclic Antidepressant,Urine Not Detected (NotDetected); Urn Cannabinoid Scrn Detected (NotDetected)
[2024-10-03] MEDS ORDERED: MAGNESIUM HYDROXIDE 2,400 MG/30 ML CUP PO PRN (18:03)
[2024-10-03] MEDS ORDERED: MAG HYDROX/AL HYDROX/SIMETH 355 ML BOTTLE PO PRN (18:03)
[2024-10-03] MEDS ORDERED: IBUPROFEN 600 MG TAB PO PRN (18:03)
[2024-10-03] MEDS ORDERED: HALOPERIDOL LACTATE 5 MG/ML 1 ML VIAL IM PRN (18:03)
[2024-10-03] MEDS ORDERED: ACETAMINOPHEN TAB 325 MG TAB PO PRN (18:03)
[2024-10-03] MEDS ORDERED: haloperidoL 5 MG TAB PO PRN (18:03)
[2024-10-03] MEDS ORDERED: LORazepam 2 MG/ML INJ IM PRN (18:03)
[2024-10-03] MEDS: NICOTINE 14MG/24HR PATCH TRANSDERM SCH (18:13)
[2024-10-04] MEDS: traZODone HCL 50 MG TAB PO PRN (00:05)
[2024-10-04] MEDS: LORazepam 1 MG TAB PO PRN (03:01)
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
[2024-10-04 08:42] LABS: ALT 38 U/L (4-49); AST 71 U/L (17-59); African American GFR (CKD) >90 (>60 ml/min/1.73 sqM); Albumin 5.2 g/dL (3.5-5.0); Alkaline Phosphatase 94 U/L (38-126); Anion Gap 15 mmol/L; Bilirubin, Delta 0.3 mg/dL (0.0-0.2); Bilirubin,Unconjugated 1.6 mg/dL (0.0-1.1); Blood Urea Nitrogen 13 mg/dL (9-20); Calcium 9.7 mg/dL (8.4-10.2); Carbon Dioxide 25 mmol/L (22-30); Chloride 96 mmol/L (98-107); Glucose 87 mg/dL (74-99); Non-African American GFR(CKD) 89 (>60 ml/min/1.73 sqM); Potassium 3.7 mmol/L (3.5-5.1); Sodium 136 mmol/L (137-145); Total Bilirubin 1.9 mg/dL (0.2-1.3); Total Protein 8.2 g/dL (6.3-8.2)
[2024-10-04 08:53] LABS: Basophils % (A) 1 %; Eosinophils % (A) 1 %; HCT 46.1 % (39.0-53.0); HGB 15.4 gm/dL (13.0-17.5); Lymphocytes # (A) 1.3 k/uL (1.0-4.8); Lymphocytes % (A) 28 %; MCH 30.4 pg (25.0-35.0); MCHC 33.5 g/dL (31.0-37.0); Mean Platelet Volume 8.3; Monocytes # (A) 0.3 k/uL (0-1.0); Monocytes % (A) 7 %; Neutrophils # (A) 2.8 k/uL (1.3-7.7); Neutrophils % (A) 61 %; Platelet Count 218 k/uL (150-450); RBC 5.07 m/uL (4.30-5.90); RDW 12.4 % (11.5-15.5); WBC 4.6 k/uL (3.8-10.6)
[2024-10-04] MEDS: PALIPERIDONE 6 MG TAB.ER.24 PO SCH (12:40)
--- NOTE | 2024-10-04 13:58 | P.HP ---
Psychiatric H&P - . H&P Date: 10/04/24 History & Physical: Allergies Allergy/AdvReac Type Severity Reaction Status Date / Time No Known Allergies Allergy Verified 10/03/24 15:07 Vital Signs Temp 98.2 F 10/04/24 09:00 Pulse 117 H 10/04/24 09:00 Resp 16 10/04/24 09:00 BP 103/69 10/04/24 09:00 Pulse Ox 98 10/04/24 09:00 FiO2 Intake & Output 10/03/24 10/04/24 10/04/24 18:59 06:59 18:59 Weight 48.336 kg Laboratory Last Values WBC 4.6 k/uL (3.8-10.6) 10/04/24 07:45 RBC 5.07 m/uL (4.30-5.90) 10/04/24 07:45 Hgb 15.4 gm/dL (13.0-17.5) 10/04/24 07:45 Hct 46.1 % (39.0-53.0) 10/04/24 07:45 MCV 91.0 fL (80.0-100.0) 10/04/24 07:45 MCH 30.4 pg (25.0-35.0) 10/04/24 07:45 MCHC 33.5 g/dL (31.0-37.0) 10/04/24 07:45 RDW 12.4 % (11.5-15.5) 10/04/24 07:45 Plt Count 218 k/uL (150-450) 10/04/24 07:45 MPV 8.3 10/04/24 07:45 Neutrophils % 61 % 10/04/24 07:45 Lymphocytes % 28 % 10/04/24 07:45 Monocytes % 7 % 10/04/24 07:45 Eosinophils % 1 % 10/04/24 07:45 Basophils % 1 % 10/04/24 07:45 Neutrophils # 2.8 k/uL (1.3-7.7) 10/04/24 07:45 Lymphocytes # 1.3 k/uL (1.0-4.8) 10/04/24 07:45 Monocytes # 0.3 k/uL (0-1.0) 10/04/24 07:45 Eosinophils # 0.0 k/uL (0-0.7) 10/04/24 07:45 Basophils # 0.0 k/uL (0-0.2) 10/04/24 07:45 Sodium 136 mmol/L (137-145) L 10/04/24 07:45 Potassium 3.7 mmol/L (3.5-5.1) 10/04/24 07:45 Chloride 96 mmol/L (98-107) L 10/04/24 07:45 Carbon Dioxide 25 mmol/L (22-30) 10/04/24 07:45 Anion Gap 15 mmol/L 10/04/24 07:45 BUN 13 mg/dL (9-20) 10/04/24 07:45 Creatinine 1.16 mg/dL (0.66-1.25) 10/04/24 07:45 Est GFR (CKD-EPI)AfAm >90 (>60 ml/min/1.73 sqM) 10/04/24 07:45 Est GFR (CKD-EPI)NonAf 89 (>60 ml/min/1.73 sqM) 10/04/24 07:45 Glucose 87 mg/dL (74-99) 10/04/24 07:[address] Glu mg/dL 105 mg/dL 10/04/24 07:45 Hemoglobin A1c 5.3 % (<=6.0) 10/04/24 07:45 Calcium 9.7 mg/dL (8.4-10.2) 10/04/24 07:45 Total Bilirubin 1.9 mg/dL (0.2-1.3) H 10/04/24 07:45 Conjugated Bilirubin 0.0 mg/dL (0.0-0.3) 10/04/24 07:45 Unconjugated Bilirubin 1.6 mg/dL (0.0-1.1) H 10/04/24 07:45 Delta Bilirubin 0.3 mg/dL (0.0-0.2) H 10/04/24 07:45 AST 71 U/L (17-59) H 10/04/24 07:45 ALT 38 U/L (4-49) 10/04/24 07:45 Alkaline Phosphatase 94 U/L (38-126) 10/04/24 07:45 Total Protein 8.2 g/dL (6.3-8.2) 10/04/24 07:45 Albumin 5.2 g/dL (3.5-5.0) H 10/04/24 07:45 TSH 0.922 mIU/L (0.465-4.680) 10/04/24 07:45 Urine Opiates Screen Not Detected (NotDetected) 10/03/24 14:10 Ur Oxycodone Screen Not Detected (NotDetected) 10/03/24 14:10 Urine Methadone Screen Not Detected (NotDetected) 10/03/24 14:10 Ur Barbiturates Screen Not Detected (NotDetected) 10/03/24 14:10 U Tricyclic Antidepress Not Detected (NotDetected) 10/03/24 14:10 Ur Phencyclidine Scrn Not Detected (NotDetected) 10/03/24 14:10 Ur Amphetamines Screen Not Detected (NotDetected) 10/03/24 14:10 U Methamphetamines Scrn Not Detected (NotDetected) 10/03/24 14:10 U Benzodiazepines Scrn Not Detected (NotDetected) 10/03/24 14:10 Urine Cocaine Screen Not Detected (NotDetected) 10/03/24 14:10 U Marijuana (THC) Screen Detected (NotDetected) H 10/03/24 14:10 SARS-CoV-2 (PCR) Not Detected (Not Detectd) 10/03/24 13:48 10/04/24 13:49 IDENTIFYING DATA: Patient is a 24-year-old male, with a guardian, reportedly employed CHIEF COMPLAINT: Psychosis, aggression, nonadherence with medications HPI: Patient presented to the hospital with increased aggression, nonadherent with medications. Per EPS, "Patient presented via PD with petition completed by mother. Patient combative and verbally threatening in the ER. RN attempted to complete EPS assessment at 1140. Patient verbally agitated and stating that he will not speak to mental health and he does not want to go to [facility]. Attempted to educate patient on the evaluation and patient stated "Do you want me to punch you, bitch". Team Foreman exit patient room, and patient shouting through window "I'm going to kill that bitch if I ever see her again". Patient labile, easily agitated, and not redirectable. Patient administered medications for agitation. Patient noted to be responding to internal stimuli and arguing internally at times. Team Foreman attempted to assess patient again at 1310. Patient restrained at this time. Patient laying still on bed, no acute distress, breathing even and unlabored. Patient appears to be staring out window in room. Team Foreman attempted to ask patient about his presenting problem, patient clenched fist and raised arm then laid arm back down. Patient maintained eye contact but refused to say a word. Patient petition completed by parent. Petition reads patient talking to himself and taking others possessions. Petition also states patient has been noncompliant with his medications." Patient seen and evaluated on the unit and was agreeable with speaking to technical document writer in office. He states ultimately being here due to him getting upset at his family due to them antagonizing him and his relationship. He states his girlfriend of 2 years ended up buying shoes for another person and this upset him. He claims that his family has been rubbing this in his face, making him more more upset. He does admit to being nonadherent with his medications however is in agreement with restarting them with the ultimate goal of transitioning to [facility]. He reports some poor appetite, low energy, anhedonia, denying any sleep difficulties or hopelessness. Patient denies any suicidal or homicidal ideations intent or plan. At this time patient denies any auditory or visual hallucinations. Patient denies any flight of ideas racing thoughts and increased in goal directed behavior. Patient admits to using vaping nicotine daily, occasional cannabis. Spoke to patient's mother who is also his guardian who states that patient was triggered by the recent break-up of his girlfriend, also expressing delusional statements of getting money through his guardianship with which is untrue. She reports patient has been nonadherent with his medications, responding to internal stimuli and acting erratic. She is hopeful the patient gets on an PERALTA upon discharge given his history of nonadherence. PAST PSYCHIATRIC HISTORY: Patient has a history of schizophreniform. Patient denies being on any psychiatric medications. Patient has had 2 inpatient hospitalizations, most recent being 11/2023. Patient was following up with [facility] under Dr. Conteh however has not followed up with his appointments since 04/2024. Patient denies any history of suicide attempts in the past. PMH: as per ER note ALLERGIES: as per EMR SUBSTANCE USE HISTORY: Patient reports vaping nicotine daily, occasional cannabis use, denying any alcohol or other substances. FAMILY PSYCHIATRIC/SUBSTANCE USE HISTORY: Patient states his maternal uncles all suffer from mental illness SOCIAL HISTORY: Patient is single, has no children and living with aunt. He has a twin brother. 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 MENTAL STATUS EXAM: General Appearance: Patient appears to be stated age is alert, directable, and attempts to cooperate. Patient appears to have fair hygiene and grooming. Behavior: Patient is seated without any agitated behavior. Speech: Patient's speech is fluent and nonpressured. Mood/Affect: Patient reports their mood is "all right", affect is congruent and constricted. Suicidality/Homicidality: Patient denies having any homicidal ideation intent or plan. Denies any suicidal ideations intent or plan Perceptions: Patient denies any visual hallucinations and denies any auditory hallucinations Though content/process: There is no evidence of any delusional thought content and thought process is linear and goal-directed. Memory and concentration: AOX3, grossly intact for the purposes of this session. Can spell "WORLD" backwards Judgment and insight: Poor STRENGTHS/WEAKNESSES: strength is that patient is resilient and has his mom's guardian. Weakness is that patient has poor judgment, not adherent with treatment and is impulsive INTELLECT: Average IMPRESSIONS: Psychosis, unspecified Rule out bipolar I disorder versus schizophrenia Nicotine dependence Rule out cannabis use disorder Nonadherence with medications PLAN: -Patient is admitted under voluntary status to [facility] for stabilization of psychiatric symptoms and safety. Patient has signed adult voluntary form and and is placed in patient's chart. -Medications : Start Invega 6 mg daily for psychosis, will plan to transition to Invega Sustenna tomorrow -Ativan and Haldol PRN for agitation/aggression -Patient was counselled on substance abuse and desired to cut back on use -Patient was informed of the risks, benefits and side effects of the medication and patient verbally consented to taking the medications. Patient signed med consent form and was placed in chart. [Patient offered and accepted patient education sheet for antipsychotics.] -Internal Medicine consult to perform medical evaluation and physical. -NRT -nicotine patch -SW on board for discharge planning. Encourage patient to participate in groups to work on coping skills. Will await deferral and court date. Anticipate discharge later this week back home with aunt pending transition to [facility]
[2024-10-04 18:56] LABS: Chol/HDL Ratio 2.61 Ratio; LDL Cholesterol,Calculated 87.2 mg/dL (0.0-131.0); VLDL Calculation 13.34 mg/dL (5.00-40.00)
[2024-10-04] MEDS: MELATONIN 5 MG TABLET PO SCH (20:25)
[2024-10-04] MEDS ORDERED: PALIPERIDONE 6 MG TAB.ER.24 PO SCH (21:00)
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
[2024-10-05] MEDS: PALIPERIDONE IM 234 MG/1.5 ML SYG IM ONE (13:12)
[2024-10-05] MEDS: SALINE NASAL GEL 14.1 GM TUBE NASAL PRN (13:12)
--- NOTE | 2024-10-06 13:20 | P.PN ---
Progress Note - Text Progress Note Date: 10/06/24 Interval History: Patient was seen wandering the hallways and was directable and agreeable to sp alma delia with contract technical writer in the office. He reports tolerating the first loading dose of Invega Sustenna yesterday with no soreness. He expressed no concerns today, getting along well with his peers and attending groups. 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 He states speaking to his aunt and that things are better between them. At this time patient denies any suicidal or homicidal ideations, intent or plan. Patient denies any auditory, visual hallucinations and denies any paranoia or delusions. Patient denies any side effects from the medications and has been compliant with meds. Mental Status Exam: General Appearance: Patient appears to be stated age is alert, directable, and cooperative. He wears glasses Behavior: Patient is calmly seated without any agitated behavior. Speech: Patient's speech is fluent and nonpressured. Mood/Affect: Mood is improving mildly, affect is congruent and blunted. Suicidality/Homicidality: Patient denies having any suicidal or homicidal ideation intent or plan. Perceptions: Patient denies any visual hallucinations and denies any auditory hallucinations Though content/process: There is no evidence of any delusional thought content and thought process is linear and goal-directed. Memory and concentration: AOX3, grossly intact for the purposes of this session Judgment and insight: Improving mildly Assessment Psychosis, unspecified Rule out bipolar 1 disorder versus schizophrenia versus schizoaffective disorder Nicotine dependence Rule out cannabis use disorder Nonadherence with medication Plan: -Patient continues to meet criteria for inpatient psychiatric admission for symptom stabilization and safety. Patient has signed adult voluntary form and medication consent and was placed in patient's chart. -Medications: Invega Sustenna 234 mg IM given yesterday with a second loading dose to be given in a few days, continue Invega 6 mg daily for psychosis in the interim -When necessary Ativan and Haldol for agitation/aggression. -Labs: Reviewed -NRT - nicotine patch -SW on board for discharge planning. Encouraged the patient to participate in milieu. Anticipate discharge back home with aunt on Friday pending transition to [facility]
--- NOTE | 2024-10-07 13:52 | P.PN ---
Progress Note - Text Progress Note Date: 10/07/24 Interval History: Patient was seen wandering the hallways and was directable and agreeable to sp cruzk with hand sign writer in the office. Patient continues to display bright affect, expressing no concerns today. He mentions sleeping well, denying any adverse effects to his medications. He asked for hand sign writer to speak to his family regarding him not being discharged on oral medications and instead is on a long- acting injectable and hand sign writer attempted to contact his guardian 3 times however was unable to contact. Patient was goal oriented, looking forward to discharge tomorrow. At this time patient denies any suicidal or homicidal ideations, intent or plan. Patient denies any auditory, visual hallucinations and denies any paranoia or delusions. Patient denies any side effects from the medications and has been compliant with meds. Mental Status Exam: General Appearance: Patient appears to be stated age is alert, directable, and cooperative. He is thin, wears glasses Behavior: Patient is calmly seated without any agitated behavior. Speech: Patient's speech is fluent and nonpressured. Mood/Affect: Mood is "good", affect is congruent and reactive. Suicidality/Homicidality: Patient denies having any suicidal or homicidal ideation intent or plan. Perceptions: Patient denies any visual hallucinations and denies any auditory hallucinations Though content/process: There is no evidence of any delusional thought content and thought process is linear and goal-directed. Memory and concentration: AOX3, grossly intact for the purposes of this session Judgment and insight: Improving mildly Assessment Psychosis, unspecified Rule out bipolar 1 disorder versus schizoaffective disorder Nicotine dependence Rule out cannabis use disorder Nonadherence with medication Plan: -Patient continues to meet criteria for inpatient psychiatric admission for symptom stabilization and safety. Patient has signed adult voluntary form and medication consent and was placed in patient's chart. -Medications: Invega Sustenna 234 mg IM given on 10/05 with a second loading dose of 156 mg IM to be given tomorrow, continue Invega 6 mg daily for psychosis in the interim. Patient to be discharged on Invega Sustenna 117 mg IM every 4 weeks -When necessary Ativan and Haldol for agitation/aggression. -Labs: Reviewed -NRT - nicotine patch -SW on board for discharge planning. Encouraged the patient to participate in milieu. Anticipate discharge back home with aunt tomorrow
[2024-10-07 21:25] VITALS: RESP 16; TEMP 98.3
[2024-10-08 08:50] VITALS: BP 124/76; PULSE 94
[2024-10-08] MEDS: PALIPERIDONE IM 156 MG/ML SYG IM ONE (09:36)
--- NOTE | 2024-10-08 13:13 | P.DS ---
Providers Date of admission: 10/03/24 16:22 Expected date of discharge: 10/08/24 Attending physician: Emilie Kirby MD Consults: 10/03/24 18:03 Consult Physician Routine Consulting Provider: Xenia Barrientos Consult Reason/Comments: History and Physical, New Admission Do you want consulting provider notified?: Yes Primary care physician: Stated None - Discharge Diagnosis(es) (1) Unspecified psychosis Status: Acute Priority: High (2) Nicotine dependence Status: Acute Priority: Low (3) Non-adherence to medical treatment Status: Acute Priority: High Hospital Course: Admission HPI: Admission note was completed by field underwriter" Patient presented to the hospital with increased aggression, nonadherent with medications. Per EPS, "Patient presented via PD with petition completed by mother. Patient combative and verbally threatening in the ER. RN attempted to complete EPS assessment at 1140. Patient verbally agitated and stating that he will not speak to mental health and he does not want to go to 3. Attempted to educate patient on the evaluation and patient stated "Do you want me to punch you, bitch". Negotiator Sales exit patient room, and patient shouting through window "I'm going to kill that bitch if I ever see her again". Patient labile, easily agitated, and not redirectable. Patient administered medications for agitation. Patient noted to be responding to internal stimuli and arguing internally at times. Negotiator Sales attempted to assess patient again at 1310. Patient restrained at this time. Patient laying still on bed, no acute distress, breathing even and unlabored. Patient appears to be staring out window in room. Negotiator Sales attempted to ask patient about his presenting problem, patient clenched fist and raised arm then laid arm back down. Patient maintained eye contact but refused to say a word. Patient petition completed by parent. Petition reads patient talking to himself and taking others possessions. Petition also states patient has been noncompliant with his medications." Patient seen and evaluated on the unit and was agreeable with speaking to field underwriter in office. He states ultimately being here due to him getting upset at his family due to them antagonizing him and his relationship. He states his girlfriend of 2 years ended up buying shoes for another person and this upset him. He claims that his family has been rubbing this in his face, making him more more upset. He does admit to being nonadherent with his medications however is in agreement with restarting them with the ultimate goal of transitioning to PERALTA. He reports some poor appetite, low energy, anhedonia, denying any sleep difficulties or hopelessness. Patient denies any suicidal or homicidal ideations intent or plan. At this time patient denies any auditory or visual hallucinations. Patient denies any flight of ideas racing thoughts and increased in goal directed behavior. Patient admits to using vaping nicotine daily, occasional cannabis. Spoke to patient's mother who is also his guardian who states that patient was triggered by the recent break-up of his girlfriend, also expressing delusional statements of getting money through his guardianship with which is untrue. She reports patient has been nonadherent with his medications, responding to internal stimuli and acting erratic. She is hopeful the patient gets on an PERALTA upon discharge given his history of nonadherence." Hospital course: Upon admission to the unit patient was directable and agreeable to commence treatment and signed adult voluntary form.. Patient got along well with other patients on the unit and followed unit protocol. Patient was compliant with the medications and denied any side effects throughout hospital course. Patient was started on Invega and he was ultimately transition to Invega Sustenna receiving his first loading dose of 234 mg IM on 10/05 with a second loading dose given on 10/08 with the monthly maintenance dose of 117 mg IM every 4 weeks next due on 11/05/2024. Patient spoke of his stressors and engaged in therapy both group and individual. Patient was also seen by medical team for history and physical exam. Throughout the course of the hospitalization patient gradually improved with regards to mood, anxiety, sleep and became more future oriented with improved insight and judgment. On the day of discharge patient denied any suicidal or homicidal ideations intent or plan denied any auditory or visual hallucinations. The patient denied any access to guns or weapons. Patient denied any paranoia and did not endorse any delusions. Patient does not have a significant history of substance abuse and was counseled on abstaining from all substances including alcohol and marijuana. Patient was also counseled on the medications and need for regular compliance and was encouraged to follow-up with their outpatient appointment for mental health and also for primary care. Prior to discharge a family meeting will be arranged by social group worker to answer any questions and ensure safety upon discharge including making sure that guns/weapons are either removed from the home or locked away. Patient to be discharged back home with aunt and will follow-up with [facility]. Mental status exam: General Appearance: Patient appears to be stated age is alert, pleasant, and cooperative. Patient is in no acute distress and has fair hygiene and grooming Behavior: Patient is calmly seated without any agitated behavior. Speech: Patient's speech is fluent and nonpressured. Mood/Affect: Patient reports their mood is "good", affect is congruent and euthymic, bright. Suicidality/Homicidality: Patient denies having any suicidal or homicidal ideation intent or plan. Perceptions: Patient denies any auditory or visual hallucinations. Though content/process: There is no evidence of any delusional thought content and thought process is linear and goal-directed. More future oriented Memory and concentration: AOX3, grossly intact for the purposes of this session. Can spell "WORLD" backwards correctly. Judgment and insight: Improved Impression: Psychosis, unspecified Rule out bipolar 1 disorder versus schizoaffective disorder Nicotine dependence Nonadherence to medication treatment Plan: -Continue with discharge today as patient has improved and stabilized psychiatrically and is not currently an imminent threat to themself and/or ot hers. -Continue medications: Invega Sustenna 117 mg IM every 4 weeks next due on 11/05/2024, melatonin 10 mg at bedtime for insomnia -Patient was counseled on the need for medication compliance and appropriate follow-up at mental health and also primary care for medical issues. Patient verbalized understanding and agreed. -Social work to help coordinate patients discharge today arrange for and conduct family meeting to ensure safety upon discharge and answer any questions/concerns. also to ensure safe home environment that guns/weapons are either removed from the home or locked away. Social work also to arrange for patients follow up appointments with [facility] for psychiatric care along with follow up with primary care provider. -Patient counseled on abstaining from recreational drugs and marijuana and alcohol. Was informed/educated on the adverse effects on their physical and mental health. Patient verbally agreed and understood. -Patient was instructed to return to the hospital or seek immediate medical care if their psychiatric or medical symptoms do worsen or reoccur. Abnormal Labs 10/03/24 10/04/24 14:10 07:45 Sodium 136 L Chloride 96 L Total Bilirubin 1.9 H Unconjugated Bilirubin 1.6 H Delta Bilirubin 0.3 H AST 71 H Albumin 5.2 H HDL Cholesterol 62.50 H U Marijuana (THC) Screen Detected H Allergies Allergy/AdvReac Type Severity Reaction Status Date / Time No Known Allergies Allergy Verified 10/03/24 15:07 Vital Signs Temp 98.3 F 10/07/24 21:24 Pulse 94 10/08/24 08:49 Resp 16 10/07/24 21:24 BP 124/76 10/08/24 08:49 Pulse Ox 100 10/07/24 21:24 FiO2 Patient Condition at Discharge: Stable Plan - Discharge Summary New Discharge Prescriptions: New Paliperidone Palmitate [Invega Sustenna] 117 mg IM QMONTHLY #1 each Melatonin 10 mg PO HS 30 Days #60 tab Discharge Medication List Melatonin 10 mg PO HS 30 Days #60 tab 10/08/24 [Rx] Paliperidone Palmitate [Invega Sustenna] 117 mg IM QMONTHLY #1 each 10/08/24 [Rx] Follow up Appointment(s)/Referral(s): [facility] [Outside] - 10/11/24 11:30 am (10/11/2024 11:30AM - 12:00PM MILAD JONES 10/14/2024 3:30PM - 4:30PM MILAD KUMAR 10/15/2024 9:00AM - 9:30AM Service: JUDY CHRIS [facility] Internal Med,[facility] [NON-STAFF] - 1 Week Patient Instructions/Handouts: Stress (DC), Depression (DC) Activity/Diet/Wound Care/Special Instructions: [facility] Discharge Info Avoid the use of street drugs and alcohol. Take all medications as prescribed. When you are in need of refills on your medications, please contact your outpatient medical provider and/or outpatient psychiatrist. Please go to your scheduled outpatient appointments for aftercare treatment. If symptoms return or become worse, call the crisis line at or and/or visit the nearest emergency room for assistance. National Suicide and Crisis Lifeline - call or text 988 Discharge Disposition: HOME SELF-CARE
== END 2024-10-08 11:45 | disposition home or self-care (01) | DRG 885 ==
LOC: EC 10:08 → 3MHU 16:22
PROVIDERS: ADMIT Psychiatry & Neurology Psychiatry; ATTEND Psychiatry & Neurology Psychiatry
DX: F20.9 Schizophrenia, unspecified (principal); F17.290 Nicotine dependence, other tobacco product, uncomplicated; F31.9 Bipolar disorder, unspecified; F41.9 Anxiety disorder, unspecified; G47.00 Insomnia, unspecified; Z91.128 Patient's intentional underdosing of medication regimen for other reason
CPT/HCPCS: 80053; 80061; 80306; 82075; 82248; 83036; 84443; 85025; 87635; 96372; 99285